=== PATIENT | female | born 1955 | race Caucasian/White ===

== ENCOUNTER 2021-03-05 12:54 | Inpatient (IN) | payer MEDICARE, OTHER, SELFPAY ==
[2021-03-05] VITALS (17 sets, daily range): BP systolic 159–206; BP diastolic 85–104; PULSE 64–88; RESP 15–18; TEMP 36.2–36.6; O2SAT 95–100; BMI 25.2; BMI 24.8
--- NOTE | 2021-03-05 13:20 | EKG12_ITS ---
Test Reason : VISION Blood Pressure : / mmHG Vent. Rate : 079 BPM Atrial Rate : 079 BPM P-R Int : 148 ms QRS Dur : 100 ms QT Int : 382 ms P-R-T Axes : 047 033 050 degrees QTc Int : 438 ms Sinus rhythm with occasional Premature ventricular complexes Otherwise normal ECG Confirmed by JORDAN PEREZ, CECILIA ([id number]), metropolitan editor TARSHA AMIN ([id number]) on 03/11/2021 9:30:59 A M Referred By: JANICE Confirmed By:JD ORTEGA MD
--- NOTE | 2021-03-05 13:20 | CT_ITS ---
STUDY: CT HEAD STROKE PROTOCOL W/O CONTRAST INJECTION REASON FOR EXAM: Female, 66 years old. Neuro deficit, acute, stroke suspected RADIATION DOSAGE (If Supplied By Facility): CTDIvol = ( ) mGy, DLP = ( ) mGycm TECHNIQUE: Transaxial CT imaging of the brain was performed without administration of intravenous contrast material. Individualized dose optimization techniques were used for this CT. COMPARISON: No relevant priors. FINDINGS: Normal soft tissue structures. Normal calvarium. There is mild cerebral atrophy with widening of the extra-axial spaces and ventricular dilatation. There are areas of decreased attenuation within the white matter tracts of the supratentorial brain, consistent with microvascular disease changes. There are small punctate calcifications of the basal ganglia which are seen in the aging brain as a normal variant. Normal brainstem. Normal cerebellum. There is no intracranial hemorrhage. Moderate sized area of diminished density involving the left occipital lobe. Normal visualized paranasal sinuses. CT/STROKE Brain/Head without Cont IMPRESSION: Left SAFE AND VAULT SERVICE MECHANIC territory (occipital lobe) infarction. No acute intracranial hemorrhage. N.B. : The above Results were Read Back by Soham Torres MD (Brooks) to Luis Connolly DO, and understanding confirmed on 03/05/2021 13:56:05 (ET). Electronically Signed: Soham Torres MD (Brooks) at 13:57 EDT , Service support ,
--- NOTE | 2021-03-05 13:26 | NURSING ---
NO OLD EKGS
[2021-03-05 13:37] LABS: Absolute Lymphocyte Count 2.35 X10^3/uL (0.83-4.51); Absolute Neutrophil Count 4.7 X10^3/uL (2.0-7.7); Basophil# 0.07 X10^3/uL; Basophil% 0.9 % (0-1); Eosinophil# 0.04 X10^3/uL; Eosinophils% 0.5 % (0-5); Hemoglobin 13.6 g/dL (12.0-15.0); Lymphocyte # 2.35 X10^3/ul (0.83-4.51); Lymphocyte % 30.8 % (19-41); Mean Corp Hgb Conc 33.2 g/dL (32-36); Mean Corpuscular Hgb 28.2 pg (27.0-32.0); Mean Corpuscular Volume 84.9 fL (81-99); Mean Platelet Vol. 9.6 fl (6.2-12.0); Monocyte# 0.48 X10^3/uL; Monocyte% 6.3 % (0-10); NRBC Flagged by Analyzer 0 % (0-5); Neutrophil # 4.65 X10^3/uL (2.7-7.7); Neutrophil % 60.8 % (47-70); Platelet Count 321 K/mm3 (150-450); RBC Distribution Width CV 12.2 % (11.6-14.6); RBC Distribution Width SD 37.6 fl (35.1-43.9); Red Blood Count 4.83 M/mm3 (4.2-5.4); White Blood Count 7.6 K/mm3 (4.4-11.0)
--- NOTE | 2021-03-05 13:39 | RAD_ITS ---
STUDY: X-RAY CHEST REASON FOR EXAM: Female, 66 years old. Neuro deficit, acute, stroke suspected TECHNIQUE: AP COMPARISON: None. FINDINGS: EKG leads project over the chest. The lungs are clear and expanded. There is no demonstrated pleural abnormality. Normal size heart. Normal mediastinum and guillaume. Normal visualized pulmonary arteries. There is atherosclerotic tortuosity of the aortic arch and descending thoracic aorta. Normal visualized thoracic spine. Normal visualized ribs, clavicles, and shoulders. There is no demonstrated abnormality of the visualized soft tissue structures of the upper abdomen. RAD/Chest 1 View IMPRESSION: Nonacute portable x-ray examination of the chest. Electronically Signed: Soham Torres MD (Brooks) at 13:57 EDT , Service support ,
[2021-03-05 14:00] LABS: Anion Gap 9 (5-15); BUN 10 mg/dL (7-18); BUN/Creat Ratio 13.6 RATIO (10-20); Calcium,Total 9.1 mg/dL (8.5-10.1); Chloride 102 mmol/L (98-107); Creatinine, Serum 0.73 mg/dL (0.55-1.02); EST Glomerular Filtration Rate 85 mL/min (>60); Est Glom Filt Rate - Afr Amer 102 mL/min (>60); Estimated Creatinine Clearance 71.92 ml/min; Free T3 1.4 pg/mL (2.18-3.98); Glucose 243 mg/dL (74-106); Potassium 3.6 mmol/L (3.5-5.1); Sodium Level 137 mmol/L (136-145); T4 Free Direct 0.85 ng/dL (0.76-1.46); Thyroid Stim Hormone (TSH) 6.38 uIU/mL (0.358-3.74); Troponin-I HS 18 pg/mL (3.0-54.0)
[2021-03-05 14:08] LABS: Prothrombin Time (Protime)PT. 12.4 SECONDS (11.7-14.9)
[2021-03-05 14:09] LABS: Partial Thromboplast Time 26.3 Seconds (24.1-36.2)
--- NOTE | 2021-03-05 14:10 | PCM.HP.STD ---
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 Work-up in the ED included T 97.5, heart rate 88, BP initially 196/104 with repeat 182/90, respiratory rate 16, 100% on room air, CBC with WBC 7.6, hemoglobin 13.6, platelet 321 without marked shift, unremarkable coags including PT 12.4, INR 1.0 with pending PTT, BMP with glucose 243, TSH 6.38 with free T4 0.85, high-sensitivity troponin 18, chest x-ray with no acute cardiopulmonary findings, CT head with a left CLEAN ROOM ASSEMBLER territory (occipital lobe) infarction evident with no acute intracranial hemorrhage, EKG sinus rhythm with no acute evidence of ischemia, rapid SARS Covid antigen pending. In the ED patient administered a full dose strength aspirin. [facility] Medical History (Updated 03/05/21 @ 14:[address] Melissa Muhammad MD) Adrenal adenoma Anxiety History of adrenal adenoma History of hyperthyroidism HTN (hypertension) Hypothyroid Home Medications levothyroxine [Synthroid] 125 mcg PO DAILY 03/05/21 [History Last Taken Unknown] Allergy/AdvReac Type Severity Reaction Status Date / Time atenolol AdvReac Other Verified 03/05/21 12:58 erythromycin base AdvReac Other Verified 03/05/21 12:58 Family History (Updated 03/05/21 @ 14:[address] Melissa Muhammad MD) Mother Cancer Hx breast cancer and mesothelioma. Father Heart disease Surgical History (Updated 03/05/21 @ 14:[address] Melissa Muhammad MD) Hx of partial adrenalectomy S/P cholecystectomy S/P thyroidectomy Social History (Updated 03/05/21 @ 14:[address] Melissa Muhammad MD) household members: spouse Smoking Status: Never smoker alcohol intake: never substance use type: does not use ROS ROS Narrative Admission Review of Systems: CONSTITUTIONAL: No weight loss, fever, chills, + weakness or fatigue. HEENT: + Right eye vision changes with difficulty seeing anything towards the right periphery, intermittent. Eyes: No double vision or yellow sclerae. Ears, Nose, Throat: No hearing loss, sneezing, congestion, runny nose or sore throat. SKIN: No rash or itching, lesions, wounds. CARDIOVASCULAR: No chest pain, chest pressure or chest discomfort, palpitations, edema, orthopnea, syncopal events. RESPIRATORY: No shortness of breath, cough or sputum, wheezing, hemoptysis. GASTROINTESTINAL: No anorexia, nausea, vomiting or diarrhea, abdominal pain, melena, BRBPR. GENITOURINARY: No dysuria, frequency, urgency or retention. NEUROLOGICAL: + headache, No dizziness, syncope, paralysis, ataxia, numbness or tingling in the extremities, focal weakness, change in bowel or bladder control, seizure. MUSCULOSKELETAL: No muscle, back pain, joint pain or stiffness. HEMATOLOGIC: No anemia, bleeding or bruising. LYMPHATICS: No enlarged nodes. No history of splenectomy. PSYCHIATRIC: + history of depression or anxiety. ENDOCRINOLOGIC: No reports of sweating, cold or heat intolerance. No polyuria or polydipsia. ALLERGIES: No history of asthma, hives, eczema or rhinitis. Vital Signs Vital Signs Vital Signs: 03/05/21 12:54 03/05/21 13:26 03/05/21 14:00 Temperature 97.5 F L Temperature Source Temporal Pulse Rate 88 67 Respiratory Rate 16 17 Blood Pressure 196/104 H 182/90 H Blood Pressure Mean 134 120 Pulse Ox 100 96 Oxygen Delivery Method Room Air Room Air Room Air Weight Weight: 156 lb Body Mass Index (BMI) 25.2 Physical Exam Narrative Physical Examination: General: Awake, alert, oriented x 3 and cooperative, seated upright in the ED bed in no apparent distress; however, easily becomes anxious with discussions. Skin: Normal color, normal turgor, no icterus, no cyanosis. HEENT: AT/NC, EOMI, PERRLA, peripheral exam with minimal deficit to the right periphery as had been referred to the ED for right hemianopsia, MMM, no carotid bruits or JVD noted. Lungs: CTA bilaterally, moderate effort, mild decrease BL bases, no rales, ronchi or wheezing. Heart: Regular rate and rhythm; no gallop, rub audible. Abdomen: Soft, overweight, NTTP, ND, normal BS, no HSM. Extremities: No cyanosis, clubbing, or edema. Neurological: Patient awake, alert, oriented as noted, cognitive function intact; pupils equally reactive to light and accommodation, cranial nerves grossly normal except noted mild peripheral deficits to the right periphery upper and lower quadrants however this seems to be intermittent as improved upon current evaluation but had been notable upon initial ED evaluation, moving all 4 extremities, no focal deficits, strength preserved, [id number] and [id number] appropriate, sensation intact. Psychiatric: Affect appears anxious, no acute evidence of depressive feelings. Results Lab / Micro Data Result Diagrams: 03/05/21 13:25 03/05/21 13:25 Labs: Laboratory Results - last 24 hr 03/05/21 13:25: WBC 7.6, RBC 4.83, Hgb 13.6, Hct 41.0, MCV 84.9, MCH 28.2, MCHC 33.2, RDW Std Deviation 37.6, RDW Coeff of Monica 12.2, Plt Count 321, MPV 9.6, Immature Gran % (Auto) 0.700, Neut % (Auto) 60.8, Lymph % (Auto) 30.8, [place] % (Auto) 6.3, Eos % (Auto) 0.5, Baso % (Auto) 0.9, Absolute Neuts (auto) 4.7, Absolute Lymphs (auto) 2.35, Nucleated RBC % 0 03/05/21 13:25: PT Cancelled, INR Cancelled, APTT Cancelled 03/05/21 13:25: Sodium 137, Potassium 3.6, Chloride 102, Carbon Dioxide 26.0, Anion Gap 9, BUN 10, Creatinine 0.73, Estim Creat Clear Calc 71.92, Est GFR (MDRD) Af Amer 102, Est GFR (MDRD) Non-Af 85, BUN/Creatinine Ratio 13.6, Glucose 243 H, Calcium 9.1, Troponin I High Sens 18, TSH 6.38 H, Free T4 0.85, Free T3 pg/dL 1.4 L 03/05/21 13:50: PT 12.4, INR 1.[address] 03/05/21 13:20 IMPRESSION: Left CLEAN ROOM ASSEMBLER territory (occipital lobe) infarction. No acute intracranial hemorrhage. N.B. : The above Results were Read Back by Soham Torres MD (Brooks) to Luis Connolly DO, and understanding confirmed on 03/05/2021 13:56:05 (ET). Electronically Signed: Soham Torres MD (Brooks) at 13:57 EDT , Service support , ADDENDUM: 03/05/21 1404 IMPRESSION: Left CLEAN ROOM ASSEMBLER territory (occipital lobe) infarction. No acute intracranial hemorrhage. N.B. : The above Results were Read Back by Soham Torres MD (Brooks) to Luis Connolly DO, and understanding confirmed on 03/05/2021 13:56:05 (ET). Electronically Signed: Soham Torres MD (Brooks) at 13:57 EDT , Service support , Chest X-Ray 03/05/21 13:39 IMPRESSION: Nonacute portable x-ray examination of the chest. 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 1. Intermittent vision changes secondary to acute left CLEAN ROOM ASSEMBLER territory (occipital lobe) infarction: Will admit to PCU, will obtain MRI Brain, MRA Head and Neck, ECHO, PT/OT/Speech/Nutrition evaluation per protocol. Will consult Neurology for evaluation once further imaging and evaluation obtained. Given timeline with symptoms ongoing for several days will initiate hypertensive regimen, specifically Cozaar as patient has had medication reactions prior she notes and adjust as needed to maintain appropriate blood pressure parameters, maintain on aspirin, add high-dose statin, TSH is noted elevated however free T4 normal the subclinical, magnesium pending, hemoglobin A1c pending, FLP pending. Will maintain on fall precautions. 2. Elevated BP without hypertensive diagnosis: Patient has been with significant elevated blood pressures upon presentation, ongoing symptoms for several day therefore treatment will be initiated, will start with moderate dose Cozaar and monitor with additional regimen as needed to obtain appropriate BP parameters, as needed IV hydralazine 3. Hyperglycemia with suspected new onset Diabetes mellitus type II: Admission glucose 243, will obtain hemoglobin A1c, will maintain in interim on ADA diet with accu checks w/ ISS, nutrition consultation for education and teaching. 4. Hypothyroidism: Patient with history of overactive thyroid status post resection, continue home synthroid regimen, TSH 6.38 however free T4 0.85, subclinical. 5. History of adrenal adenoma: Status post resection. 6. Anxiety: Patient with discussions and per review visits with physicians and other type of life stressor issues with apparent anxiety leading to significantly elevated blood pressures. Discussed need for consideration counseling/cognitive behavioral therapy given patient difficulty with medications per her report. 7. DVT prophylaxis: SCDs, Lovenox. Charges/Coding Visit Charges Inpatient E&M: 62786 Init Hosp L3
--- NOTE | 2021-03-05 14:19 | EDS_ITS ---
HPI History of Present Illness Chief Complaint: Vision Prob Narrative Narrative: Patient presenting from her eye doctor for concern for homonymous hemianopsia on the right. He states he was concerned for a left occipital lesion. Apparently the patient symptoms started about 5 days ago. She states she was trying to read the time 1:00 and noticed that at 345 she was having difficulty reading the 5 on the right and then she states she was having difficulty reading the 4 in 345. Patient states that the next morning she was having difficulty reading in the morning. She made an appointment for her eye doctor and subsequently was sent here. She states she has only past medical history of whitecoat syndrome which is why her blood pressure is elevated. She denies diabetes or cardiac history. She does have hypothyroidism and does take Synthroid. She states she cannot remember when she took the last dose but it may have been several days. She has not had any facial droop, slurred speech, loss of function in her arms or legs. She denies paresthesias. [facility] Medical History Adrenal adenoma Hypothyroid Home Medications levothyroxine [Synthroid] 125 mcg PO DAILY 03/05/21 [History Last Taken Unknown] Allergy/AdvReac Type Severity Reaction Status Date / Time atenolol AdvReac Other Verified 03/05/21 12:58 erythromycin base AdvReac Other Verified 03/05/21 12:58 Social History Smoking Status: Never smoker ROS ROS ED Constitutional Constitutional ED: Denies chills or fever(s) Eyes Eyes: Reports blurry vision and change in vision bilateral ENT ENT ED: Denies ear pain or rhinorrhea Cardiovascular Cardiovascular: Denies chest pain or palpitations Respiratory/Chest Respiratory/Chest: Denies cough or dyspnea Gastrointestinal Gastrointestinal: Denies abdominal pain, nausea or vomiting Genitourinary Genitourinary ED: Denies dysuria or hematuria Musculoskeletal Musculoskeletal: Denies arthralgias or myalgias Integumentary Denies abscess or rash Neurologic Neurologic: Denies headache(s) or paresthesias EXAM Physical Exam Const Vital Signs: 03/05/21 12:54 03/05/21 13:20 03/05/21 13:26 Temperature 97.5 F L Temperature Source Temporal Pulse Rate 88 81 Respiratory Rate 16 17 Blood Pressure 196/104 H 206/98 H Blood Pressure Mean 134 134 Pulse Ox 100 99 Oxygen Delivery Method Room Air Room Air Room Air 03/05/21 13:50 03/05/21 14:00 Temperature Temperature Source Pulse Rate 77 67 Respiratory Rate 16 17 Blood Pressure 182/90 H 182/90 H Blood Pressure Mean 120 120 Pulse Ox 99 96 Oxygen Delivery Method Room Air Room Air Positive well nourished General Appearance ED: NAD HEENT Reports moist mucous membranes atraumatic Eyes PERRL and EOMs intact bilaterally Resp normal respiratory effort and clear to auscultation bilaterally Cardio Rate: regular rate Rhythm: regular rhythm Extremity normal to inspection General Extremety ED: Negative for deformity or tenderness General Extremity: Negative for deformity Neuro oriented x3 and no sensory deficits noted Neuro Narrative: Denies stroke scale score of 1 for right homonymous hemianopia Sensorium / Orientation: alert Motor Exam: strength 5/5 throughout Psych mental status grossly normal Skin General Skin Exam: Negative for jaundice STROKE Vital Signs/Narrative: Vital Signs Temp Pulse Resp BP Pulse Ox 03/05/21 14:00 67 17 182/90 H 96 03/05/21 13:50 77 16 182/90 H 99 03/05/21 13:20 81 17 206/98 H 99 03/05/21 12:54 97.5 F L 88 16 196/104 H 100 MDM MDM MDM Narrative Medical decision making narrative: Patient presenting with right-sided homonymous myopia. This is the only finding on examination. NIH stroke scale score of 1. Patient CBC and BMP are significant only for hyperglycemia with a blood glucose of 243. Patient does admit to not eating or drinking anything with sugar today. She is only had water. It is possible she could be diabetic and undiagnosed. I EKG on my interpretation shows a normal sinus rhythm with a ventricular rate of 79 bpm with occasional PVC. Troponin is 18. TSH is elevated at 6.38, free T4 0.85, free T3 1.4. Coagulation studies are normal. The radiologist did read the CT of the brain as Left GENERAL OPHTHALMOLOGIST territory (occipital lobe) infarction. No acute intracranial hemorrhage. This does make sense given the patient's symptoms. Patient was given aspirin 324 mg p.o. She will be discussed with the hospitalist for admission for CVA. Her blood pressure was e levated and she is not treated for hypertension. She states that she has whitecoat syndrome and that when she is at home her blood pressures in the 140 systolic range. In addition to this her blood sugar is elevated and this will need to be evaluated inpatient for possible underlying diabetes. Patient stable on transfer to medical floor. Impression: 1. CVA 2. Right hemianopsia 3. Hypertension 4. Hyperglycemia Lab Data Labs: Laboratory Results - last 24 hr 03/05/21 03/05/21 03/05/21 13:25 13:25 13:25 WBC 7.6 RBC 4.83 Hgb 13.6 Hct 41.0 MCV 84.9 MCH 28.2 MCHC 33.2 RDW Std Deviation 37.6 RDW Coeff of Monica 12.2 Plt Count 321 MPV 9.6 Immature Gran % (Auto) 0.700 Neut % (Auto) 60.8 Lymph % (Auto) 30.8 [place] % (Auto) 6.3 Eos % (Auto) 0.5 Baso % (Auto) 0.9 Absolute Neuts (auto) 4.7 Absolute Lymphs (auto) 2.35 Nucleated RBC % 0 PT Cancelled INR Cancelled APTT Cancelled Sodium 137 Potassium 3.6 Chloride 102 Carbon Dioxide 26.0 Anion Gap 9 BUN 10 Creatinine 0.73 Estim Creat Clear Calc 71.92 Est GFR (MDRD) Af Amer 102 Est GFR (MDRD) Non-Af 85 BUN/Creatinine Ratio 13.6 Glucose 243 H Calcium 9.1 Troponin I High Sens 18 TSH 6.38 H Free T4 0.85 Free T3 pg/dL 1.4 L 03/05/21 13:50 WBC RBC Hgb Hct MCV MCH MCHC RDW Std Deviation RDW Coeff of Monica Plt Count MPV Immature Gran % (Auto) Neut % (Auto) Lymph % (Auto) [place] % (Auto) Eos % (Auto) Baso % (Auto) Absolute Neuts (auto) Absolute Lymphs (auto) Nucleated RBC % PT 12.4 INR 1.0 APTT 26.3 Sodium Potassium Chloride Carbon Dioxide Anion Gap BUN Creatinine Estim Creat Clear Calc Est GFR (MDRD) Af Amer Est GFR (MDRD) Non-Af BUN/Creatinine Ratio Glucose Calcium Troponin I High Sens TSH Free T4 Free T3 pg/dL Radiography Diagnostic Testing: Radiology Impression Brain CT 03/05/21 13:20 IMPRESSION: Left GENERAL OPHTHALMOLOGIST territory (occipital lobe) infarction. No acute intracranial hemorrhage. N.B. : The above Results were Read Back by Soham Torres MD (Brooks) to Luis Connolly DO, and understanding confirmed on 03/05/2021 13:56:05 (ET). Electronically Signed: Soham Torres MD (Brooks) at 13:57 EDT , Service support , ADDENDUM: 03/05/21 1404 IMPRESSION: Left GENERAL OPHTHALMOLOGIST territory (occipital lobe) infarction. No acute intracranial hemorrhage. N.B. : The above Results were Read Back by Soham Torres MD (Brooks) to Luis Connolly DO, and understanding confirmed on 03/05/2021 13:56:05 (ET). Electronically Signed: Soham Torres MD (Brooks) at 13:57 EDT , Service support , Chest X-Ray 03/05/21 13:39 IMPRESSION: Nonacute portable x-ray examination of the chest. Electronically Signed: Soham Torres MD (Brooks) at 13:57 EDT , Service support , Discharge Plan Triage Chief Complaint: Vision Prob ED Provider: Luis Connolly Dx/Rx/DC Orders Primary Care Provider: Gabriela Louie
--- NOTE | 2021-03-05 14:21 | NURSING ---
DR CODY FOR DR FRANCIS
--- NOTE | 2021-03-05 14:24 | ED.RN ---
PT STATES BLOOD PRESSURE ARE ALWAYS ELEVATED DURING ANY KIND OF CONTACT WITH MEDICAL STAFF OR PROCEDURES. INSISTS BLLOD PRESSURES ARE WNL AT HOME.
--- NOTE | 2021-03-05 14:27 | NURSING ---
PCU CVA WHITE
[2021-03-05] MEDS: Aspirin 81 MG TAB.CHEW 324 MG PO (14:42)
--- NOTE | 2021-03-05 15:33 | CHAPLAIN ---
Type of Pastoral Visit _x__ Initial Visit ___ Follow-up Visit ___ On-call Visit ___ General Patient Visit ___ Spiritual Assessment ___ Family Conference ___ Bereavement ___ Rapid Response ___ Code Blue ___ Other (describe below) Pastoral Care Referral From _x__ Patient _x__ Family ___ Nurse ___ Physician ___ Rn Sexual Assault ___ Autocutter ___ Other (describe below) Sacrament/Intervention _x__ Active listening ___ Anointing ___ Yarsani ___ Bereavement ___ Communion ___ Veena exploration ___ _x__ Life review _x__ Prayer ___ Reconciliation ___ Sacrament of Sick _x__ Supportive presence ___ Wedding ___ Other (describe below) Pastoral Comments patient and spouse are known acquaintances of this vp revenue cycle; met them in ED upon arrival and followed through for support until patient was admitted; gave presence, prayer, and ongoing support as needed
--- NOTE | 2021-03-05 15:40 | MRI_ITS ---
We are attempting to reach an attending provider to discuss findings. An addendum with communication details will be sent when the communication is complete. EXAM: MR ANGIOGRAPHY HEAD WITHOUT INTRAVENOUS CONTRAST CLINICAL INDICATION: CVA TECHNIQUE: Routine [place]/brain 3D time of flight MR angiogram protocol was performed without intravenous contrast. This report was created using [employer] report generation technology. COMPARISON: None. FINDINGS: RIGHT INTERNAL CAROTID ARTERY: No acute findings. No significant stenosis at the intracranial/visualized segments. No aneurysm. RIGHT ANTERIOR CEREBRAL ARTERY: Unremarkable. No significant stenosis at the visualized segments. Anterior communicating artery is present. No aneurysm. RIGHT MIDDLE CEREBRAL ARTERY: Unremarkable. No significant stenosis at the visualized segments. No aneurysm. RIGHT POSTERIOR CEREBRAL ARTERY: Unremarkable. No significant stenosis at the visualized segments. No aneurysm. RIGHT VERTEBRAL ARTERY: Unremarkable as visualized. No significant stenosis at the intradural/visualized segments. No aneurysm. LEFT INTERNAL CAROTID ARTERY: No acute findings. No significant stenosis at the intracranial/visualized segments. No aneurysm. LEFT ANTERIOR CEREBRAL ARTERY: Unremarkable. No significant stenosis at the visualized segments. Anterior communicating artery is present. No aneurysm. LEFT MIDDLE CEREBRAL ARTERY: Unremarkable. No significant stenosis at the visualized segments. No aneurysm. LEFT POSTERIOR CEREBRAL ARTERY: Unremarkable. No significant stenosis at the visualized segments. No aneurysm. LEFT VERTEBRAL ARTERY: Unremarkable as visualized. No significant stenosis at the intradural/visualized segments. No aneurysm. BASILAR ARTERY: Unremarkable. No significant stenosis. No aneurysm. OTHER VASCULATURE: No vascular malformation. BRAIN AND EXTRA-AXIAL SPACES: There is occlusion of the left HOUSE WORKER. There is an ischemic infarct in the left occipital lobe. MRI/MRA Head ONLY without Contrast IMPRESSION: There is occlusion of the left HOUSE WORKER. There is an ischemic infarct in the left occipital lobe. cf called. Electronically Signed: Artie Abreu MD at 20:25 EDT , Service support ,
--- NOTE | 2021-03-05 15:40 | MRI_ITS ---
STUDY: MR Brain W/O Contrast 03/05/2021 8:25 PM REASON FOR EXAM: Female, 66 years old. CVA COMPARISON: None TECHNIQUE: Standardized multiplanar fat and water weighted pulse sequences were obtained. MR Brain W/O Contrast FINDINGS: There is mild cerebral atrophy with widening of the extra-axial spaces and ventricular dilatation. There are a limited number of small white matter hyperintensities, distributed throughout the deep white matter tracts of the cerebral hemispheres, consistent with mild chronic white matter ischemic changes. There is mild prominence of the vermian folia, consistent with atrophy of the vermis. The cerebellar hemispheres are normal. There is abnormal diffusion weighted signal in the Left occipital lobe. There is a correlation abnormal area of low ADC signal. This is consistent for an ischemic infarction. Normal bilateral basal ganglia. Normal thalami. There is no extra-axial fluid accumulation. Normal flow voids within the major intracranial circulation suggesting patency by spin echo criteria. Normal sella turcica, pituitary gland, infundibular stalk, optic chiasm and hypothalamus. Normal tectal plate and pineal gland. Normal midbrain, andrea and medulla. Normal basal cisterns. Normal bilateral temporal bones. Normal bilateral internal auditory canals. No demonstrated orbital abnormality, within the constraints of a routine brain study. Normal visualized paranasal sinuses. Normal calvarium and skull base. Normal visualized soft tissue structures. Normal visualized upper cervical spine. Aspect score 10 IMPRESSION: (NOT LISTED IN ORDER OF SIGNIFICANCE) There is an acute ischemic infarction of the Left occipital lobe. Cf called. Electronically Signed: Artie Abreu MD at 20:27 EDT , Service support , MRI/Brain without Contrast
--- NOTE | 2021-03-05 15:40 | MRI_ITS ---
EXAM: MR ANGIOGRAPHY NECK WITHOUT INTRAVENOUS CONTRAST CLINICAL INDICATION: CVA TECHNIQUE: Routine carotid MR angiogram protocol was performed without intravenous contrast. 3D reconstructions were reviewed. Nascet criteria using the distal ICAs for comparison were used for evaluation of stenoses. This report was created using [employer] report [employer] technology. COMPARISON: None. FINDINGS: RIGHT COMMON CAROTID ARTERY: Unremarkable. No occlusion or significant stenosis. No dissection. RIGHT INTERNAL CAROTID ARTERY: Unremarkable. Extracranial segment is patent with no occlusion or significant stenosis. No dissection. RIGHT EXTERNAL CAROTID ARTERY: Unremarkable. No occlusion. RIGHT VERTEBRAL ARTERY: Unremarkable. No occlusion or significant stenosis. No dissection. LEFT COMMON CAROTID ARTERY: Unremarkable. No occlusion or significant stenosis. No dissection. LEFT INTERNAL CAROTID ARTERY: Unremarkable. Extracranial segment is patent with no occlusion or significant stenosis. No dissection. LEFT EXTERNAL CAROTID ARTERY: Unremarkable. No occlusion. LEFT VERTEBRAL ARTERY: Unremarkable. No occlusion or significant stenosis. No dissection. GREAT VESSELS OF AORTIC ARCH: Unremarkable. No significant stenosis. CAROTID STENOSIS REFERENCE USING NASCET CRITERIA: % ICA stenosis = (1 - narrowest ICA diameter/diameter of distal cervical ICA) x 100. Mild - <50% stenosis. Moderate - 50-69% stenosis. Severe - 70-94% stenosis. Near occlusion - 95-99% stenosis. Occluded - 100% stenosis. MRI/MRA Neck without Contrast IMPRESSION: Unremarkable MRA neck.ALL ABOVE CRITERIA BY NASCET. Electronically Signed: Artie Abreu MD at 21:25 EDT , Service support ,
--- NOTE | 2021-03-05 15:40 | ECHOD_ITS ---
Reason For Study: CVA Procedure This was a 2D Doppler, Color Flow transthoracic echocardiogram. Exam performed portable in patient room. Left Ventricle Normal LV size. Left ventricular systolic function is normal. The estimated ejection fraction is 60 %. Stage 1 diastolic dysfunction. No regional wall motion abnormalities noted. Right Ventricle Normal RV size. Normal systolic function. Atria Normal left atrium. Normal right atrium. Bubble contrast study negative for right to left interatrial shunt. Mitral Valve Normal mitral valve. Tricuspid Valve Normal tricuspid valve. Mild (1+) tricuspid valve insufficiency. Aortic Valve Trisinus/trileaflet aortic valve. Pulmonic Valve Normal pulmonic valve. Great Vessels Normal aortic root. The pulmonary artery is normal size. Normal inferior vena cava. Pericardium/Pleural No pericardial effusion. Medication Performed a rapid injection of agitated mix of 9 cc saline and 1cc air to assess for atrial septal defect. MMode/2D Measurements & Calculations LVIDd: 4.3 cm IVSd: 1.0 cm Ao root diam: 3.3 cm LVIDs: 2.4 cm LVPWd: 1.2 cm RVDd: 2.8 cm FS: 44.2 % LAV(MOD-bp): 34.6 ml LVAd ap4: 24.6 cm2 LVAd ap2: 25.7 cm2 LAV(MOD-bp) Indexed: 19.4 ml/m2 LVLd ap4: 7.8 cm LVLd ap2: 8.2 cm LAV(MOD-sp2): 35.1 ml EDV(MOD-sp4): 63.2 ml EDV(MOD-sp2): 67.9 ml LAV(MOD-sp4): 29.2 ml EDV(sp4-el): 65.6 ml EDV(sp2-el): 68.4 ml LVAs ap4: 12.9 cm2 LVAs ap2: 11.7 cm2 LVLs ap4: 6.8 cm LVLs ap2: 6.8 cm ESV(MOD-sp4): 21.1 ml ESV(MOD-sp2): 18.5 ml ESV(sp4-el): 21.0 ml ESV(sp2-el): 17.0 ml EF(MOD-sp4): 66.6 % EF(MOD-sp2): 72.7 % EF(sp4-el): 68.0 % SV(MOD-sp4): 42.1 ml SV(MOD-sp2): 49.4 ml SV(sp4-el): 44.6 ml LA A4 area: 12.3 cm2 LA dimension(2D): 3.3 cm RA A4 area: 9.2 cm2 Doppler Measurements & Calculations MV E max sergo: 69.1 cm/sec Lat Peak E' Sergo: 7.8 cm/sec Med Peak E' Sergo: 5.4 cm/sec MV A max sergo: 65.7 cm/sec E/E' lat: 8.8 E/E' med: 12.7 MV E/A: 1.1 Ao V2 max: 139.6 cm/sec LV V1 max: 106.8 cm/sec PA V2 max: 93.0 cm/sec Ao max P.8 mmHg LV V1 max P.6 mmHg TR max sergo: 217.7 cm/sec TR max P.0 mmHg ECHO/Echo Complete Interpretation Summary Normal LV size. Left ventricular systolic function is normal. The estimated ejection fraction is 60 %. Stage 1 diastolic dysfunction. Bubble contrast study negative for right to left interatrial shunt. Ordering Physician: Melissa Muhammad Referring Physician: Gabriela Louie M.D. Performed By: Sue Munoz RDCS
[2021-03-05] MEDS: 0.9% Normal Saline 1,000 ML 100 ML IV (16:50)
[2021-03-05] MEDS: 0.9% Saline Lock 10 ML Syringe IV ×2 (16:50→18:46)
[2021-03-05] MEDS: Losartan Potassium 50 MG Tablet PO ×2 (16:50→20:58)
[2021-03-05] MEDS: Insulin Lispro 100 UNIT/ML INSULN.PEN SC ×2 (17:09→20:59)
[2021-03-05 17:11] LABS: Bedside Glucose 209 mg/dL (70-110)
[2021-03-05] MEDS: LORazepam 2 MG/ML Syringe 0.5 MG IV (18:46)
--- NOTE | 2021-03-05 20:30 | NURSING ---
Pts primary rn aware of mri critical findings at this time.
--- NOTE | 2021-03-05 20:50 | TELEMED_ITS ---
[facility] Tele[facility] has confirmed receipt of a request for visit. This document confirms receipt of the order initiating the consult. To find the results of the consultation, please view the patient's reports for the scanned Telemed Consult.
[2021-03-05] MEDS: Atorvastatin Calcium 80 MG Tablet PO (20:59)
--- NOTE | 2021-03-05 21:22 | CDU_ITS ---
Reason For Study: CVA Rt. Velocities/BP Lt. Velocities/BP Prox CCA 68/12 cm/sec. Prox CCA 74/17 cm/sec. Mid CCA 76/19 cm/sec. Mid CCA 85/21 cm/sec. Dist CCA 70/19 cm/sec. Dist CCA 71/20 cm/sec. Prox ICA 54/17 cm/sec. Prox ICA 133/45 cm/sec. Mid ICA 63/22 cm/sec. Mid ICA 103/30 cm/sec. Dist ICA 90/30 cm/sec. Dist ICA 80/30 cm/sec. Rt. ICA/CCA = 1.2. Lt. ICA/CCA = 1.6. Prox ECA 64/9 cm/sec. Prox ECA 56/7 cm/sec. Rt. Vert. 44/14 cm/sec. Lt. Vert. 57/20 cm/sec. Right Extracranial There is heterogeneous, irregular atherosclerotic plaque noted in the right common carotid artery. There is heterogeneous, irregular atherosclerotic plaque noted in the right internal carotid artery. There is no significant atherosclerotic plaque noted in the right external carotid artery. Antegrade flow is noted in the right vertebral artery. Left Extracranial There is heterogeneous, irregular atherosclerotic plaque noted in the left common carotid artery. There is heterogeneous, irregular atherosclerotic plaque noted in the left internal carotid artery. There is intimal thickening but no significant atherosclerotic plaque noted in the left external carotid artery. Antegrade flow is noted in the left vertebral artery. Procedure Carotid Duplex 62799. This is a Carotid Duplex examination using B-mode, color flow and specral Doppler. Exam performed portable in patient room. VL/Carotid Duplex Ultrasound Interpretation Summary Irregular calcific plaque with shadowing at the proximal right internal carotid artery with less than 50% stenosis. Less than 50% stenosis right external carotid artery Irregular calcific plaque in the proximal left internal carotid artery with 50 to 69% stenosis. Less than 50% stenosis left external carotid artery Patent and antegrade vertebral arteries bilaterally Ordering Physician: Holley Olsen Referring Physician: Gabriela Louie Performed By: Mckayla Amor, QUINCY, RVT
[2021-03-05 22:50] LABS: Bedside Glucose 222 mg/dL (70-110)
[2021-03-06] VITALS (11 sets, daily range): BP systolic 116–223; BP diastolic 57–96; PULSE 58–84; RESP 18; TEMP 36.2–36.8; O2SAT 98–100; BMI 24.8
[2021-03-06] MEDS: Levothyroxine 125 MCG Tablet PO (06:19)
[2021-03-06] MEDS: Insulin Lispro 100 UNIT/ML INSULN.PEN SC ×3 (06:19→18:01)
[2021-03-06 06:55] LABS: Bedside Glucose 210 mg/dL (70-110)
[2021-03-06 07:13] LABS: Absolute Lymphocyte Count 2.26 X10^3/uL (0.83-4.51); Absolute Neutrophil Count 4.4 X10^3/uL (2.0-7.7); Basophil# 0.05 X10^3/uL; Basophil% 0.7 % (0-1); Eosinophil# 0.11 X10^3/uL; Eosinophils% 1.5 % (0-5); Hematocrit 36.4 % (37-47); Hemoglobin 12.4 g/dL (12.0-15.0); Lymphocyte # 2.26 X10^3/ul (0.83-4.51); Lymphocyte % 30.3 % (19-41); Mean Corp Hgb Conc 34.1 g/dL (32-36); Mean Corpuscular Hgb 28.5 pg (27.0-32.0); Mean Corpuscular Volume 83.7 fL (81-99); Mean Platelet Vol. 9.5 fl (6.2-12.0); Monocyte# 0.59 X10^3/uL; Monocyte% 7.9 % (0-10); NRBC Flagged by Analyzer 0 % (0-5); Neutrophil # 4.37 X10^3/uL (2.7-7.7); Neutrophil % 58.7 % (47-70); Platelet Count 278 K/mm3 (150-450); RBC Distribution Width SD 36.7 fl (35.1-43.9); Red Blood Count 4.35 M/mm3 (4.2-5.4); White Blood Count 7.5 K/mm3 (4.4-11.0)
[2021-03-06 07:38] LABS: Hemoglobin A1c 11.5 % (3.8-5.6)
[2021-03-06 07:46] LABS: ALB/GLOB Ratio 0.9 RATIO (0.9-2.4); AST(SGOT) 25 U/L (15-37); Alanine Aminotransfer ALT/SGPT 38 U/L (13-56); Albumin, Serum 3.1 g/dL (3.2-5.0); Alkaline Phosphatase 58 U/L (45-117); Anion Gap 7 (5-15); BUN 13 mg/dL (7-18); BUN/Creat Ratio 20.4 RATIO (10-20); Calcium,Total 8.5 mg/dL (8.5-10.1); Chloride 105 mmol/L (98-107); Cholesterol 223 mg/dL (200); Creatinine, Serum 0.64 mg/dL (0.55-1.02); EST Glomerular Filtration Rate 100 mL/min (>60); Est Glom Filt Rate - Afr Amer 120 mL/min (>60); Estimated Creatinine Clearance 82.04 ml/min; Globulin 3.5 g/dL (2.2-4.2); Glucose 221 mg/dL (74-106); High Density Lipoprotein 44 mg/dL; Potassium 3.6 mmol/L (3.5-5.1); Protein, Total 6.6 g/dL (6.4-8.2); Sodium Level 138 mmol/L (136-145); Triglycerides 173 mg/dL; Very Low Density Lipoprotein 35 mg/dL (5-40)
--- NOTE | 2021-03-06 09:28 | CASEMGMT ---
SW went to complete a PHQ 9 with patient as she had a Stroke. However, she politely declined. Liza Rothman MSW MARY ANNE
[2021-03-06] MEDS: Aspirin 325 MG Tablet PO (09:48)
[2021-03-06] MEDS: Losartan Potassium 50 MG Tablet PO ×2 (09:51→18:02)
[2021-03-06] MEDS: Enoxaparin 40 MG/0.4 ML Syringe SC (09:53)
--- NOTE | 2021-03-06 11:35 | CASEMGMT ---
Assessment- SW completed assessment with patient. Her was present as well and she was okay proceeding with assessment. SW also verified demographics information. Living situation- The home that patient and her normally live in is 2 stories. However, due to her 's health issues they have been staying at another home (patient's dad's home, he has ). This home is 1 level with a couple entry steps. PCP: Dr Louie Specialists: someone for her Thyroid, but she doesn't remember name [facility]acy: [facility] DME: shower chair, walker, bedside commode, and grab bars ADL's/IADL's: Patient is normally independent with all ADL's and IADL's Past SNF/rehab: None Past HH: None LW: No. POA: No. Plan: Patient does not anticipate she will need anything at discharge. SW let her know KASANDRA CHAPMAN and SW will follow just in case she ends up needing something. Liza [facility] [employer]
[2021-03-06 12:31] LABS: Bedside Glucose 284 mg/dL (70-110)
--- NOTE | 2021-03-06 12:49 | PCM.DC.SUM ---
Providers Date of Admission: 03/05/21 Primary Care Physician: Dr. Gabriela Louie MD Reason For Visit: ACUTE OCCIPTAL LOBE L INFARCT,NEW ONSET DM, HTN Diagnosis Discharge Diagnosis (1) Acute CVA (cerebrovascular accident): Status: Acute Code(s): I63.9 - Cerebral infarction, unspecified Medications at Discharge Home Medications levothyroxine [Synthroid] 125 mcg PO MOTUWETHFRSA 03/05/21 amlodipine 10 mg PO DAILY #30 tab 03/06/21 amoxicillin 500 mg PO Q8H #15 cap 03/06/21 aspirin 325 mg PO DAILY #30 tab 03/06/21 atorvastatin 80 mg PO QHS #30 tab 03/06/21 clopidogrel [Plavix] 75 mg PO DAILY #21 tab 03/06/21 insulin admin supplies #1 ea 03/06/21 insulin glargine [Lantus Solostar U-100 Insulin] 10 unit SUBCUT QPM #15 ml 03/06/21 lancets #100 ea 03/06/21 metformin 500 mg PO BID #60 tab 03/06/21 Hospital Course Operations None Procedures 2-D Echocardiogram Summary of Care Provided Minutes Spent on Discharge: 45 Hospital Course: Patient is a 66 y/o female with an extensive PMH as outlined, including adrenal adenoma s/p resection and hypertension (currently not treated) who was admitted with a complaint of intermittent blurred vision which had been going on for 5 days prior to admission. She had associated sensation of fullness in her head and pressure behind her eyes, so she took several doses of pseudoephedrine. Vision however worsened and so she went to the [facility] and was referred to the ED on account of right sided hemianopsia with concerns for stroke. CT of the brain done in the ED showed a left posterior cerebral artery territory infarction with no acute intracranial hemorrhage. She was admitted and managed for acute CVA. [facility] neurology was consulted. MRI of the brain showed an acute ischemic infarct of the left occipital lobe. MRA of the head and neck showed occlusion of the left CARGO AND CONTAINER INSPECTOR but was otherwise unremarkable. Carotid duplex showed irregular calcific plaque at the proximal right ICA with less than 50% stenosis and less than 50% stenosis of the right external carotid artery and also irregular calcific plaque in the proximal left ICA with 50 to 69% stenosis and less than 50% stenosis of the left external carotid artery and patent and antegrade vertebral arteries bilaterally. A1C checked was markedly elevated at 11.5; she did admit to episodes of markedly elevated blood sugars, but denied being diagnosed with diabetes mellitus. 2D echo done showed EF of 60% with normal LVSF and stage 1 diastolic dysfunction, and negative bubble study. Patient remained stable and was discharged home on 03/06/2021. She is to follow up with vascular surgery o/a of the 50-69% carotid stenosis in the left proximal left ICA. She was started on PO metformin 500mg bid and lantus 10 units daily cd due to her markedly elevated A1C. She is to follow up with her PCP and outpatient neurology, and also to follow up with endocrinology. She was also started on PO amlodipine 10mg daily o/a of elevated BP. She is to keep a BP log and present to her PCP for adjustment of her meds as needed. She was also discharged on plavix 75mg daily x 3 weeks, and is to continue with oral aspirin afterwards. Patient seen and examined prior to discharge. She complained of pain in her tooth which she described to a tooth infection and said she had been due to have a tooth pulled out some weeks ago. She requested for amoxicillin prescription. She said her vision was improving. Review of systems otherwise negative. Physical Exam Const alert, oriented x3 and no apparent distress General Appearance: cooperative, comfortable and well kempt Exam Limitations: no limitations HEENT normocephalic, head/scalp atraumatic, hearing grossly normal bilaterally and moist oral mucous membranes Eyes PERRL, EOMs intact bilaterally and conjunctivae normal Neck no lymphadenopathy Resp normal respiratory effort, no retractions, no use of accessory muscles and clear to auscultation bilaterally Auscultation: crackles Cardio regular rate, regular rhythm, S1 normal heart sound, S2 normal heart sound and no gallops GI normal to inspection, nondistended, normoactive bowel sounds, soft to palpation, non-tender and non-distended Extremity normal to inspection, full ROM and no clubbing, cyanosis or edema Skin no rashes or lesions noted Neuro oriented x3, CN's II-XII intact bilaterally and moves all extremities Sensorium / Orientation: awake and alert Psych affect normal Weight / BMI Weight Weight: 158 lb 1.143 oz Body Mass Index (BMI) 24.8 ABG / Lab / Microbiology Data Result Diagrams: 03/06/21 06:35 03/06/21 06:35 Laboratory: Laboratory Results - last 24 hr 03/05/21 13:25: WBC 7.6, RBC 4.83, Hgb 13.6, Hct 41.0, MCV 84.9, MCH 28.2, MCHC 33.2, RDW Std Deviation 37.6, RDW Coeff of Monica 12.2, Plt Count 321, MPV 9.6, Immature Gran % (Auto) 0.700, Neut % (Auto) 60.8, Lymph % (Auto) 30.8, [place] % (Auto) 6.3, Eos % (Auto) 0.5, Baso % (Auto) 0.9, Absolute Neuts (auto) 4.7, Absolute Lymphs (auto) 2.35, Nucleated RBC % 0 03/05/21 13:25: PT Cancelled, INR Cancelled, APTT Cancelled 03/05/21 13:25: Sodium 137, Potassium 3.6, Chloride 102, Carbon Dioxide 26.0, Anion Gap 9, BUN 10, Creatinine 0.73, Estim Creat Clear Calc 71.92, Est GFR (MDRD) Af Amer 102, Est GFR (MDRD) Non-Af 85, BUN/Creatinine Ratio 13.6, Glucose 243 H, Calcium 9.1, Troponin I High Sens 18, TSH 6.38 H, Free T4 0.85, Free T3 pg/dL 1.4 L 03/05/21 13:25: Magnesium 2.0 03/05/21 13:50: PT 12.4, INR 1.0, APTT 26.3 03/05/21 17:03: POC Glucose 209 H 03/05/21 20:57: POC Glucose 222 H 03/06/21 06:18: POC Glucose 210 H 03/06/21 06:35: WBC 7.5, RBC 4.35, Hgb 12.4, Hct 36.4 L, MCV 83.7, MCH 28.5, MCHC 34.1, RDW Std Deviation 36.7, RDW Coeff of Monica 12.0, Plt Count 278, MPV 9.5, Immature Gran % (Auto) 0.900, Neut % (Auto) 58.7, Lymph % (Auto) 30.3, [place] % (Auto) 7.9, Eos % (Auto) 1.5, Baso % (Auto) 0.7, Absolute Neuts (auto) 4.4, Absolute Lymphs (auto) 2.26, Nucleated RBC % 0 03/06/21 06:35: Sodium 138, Potassium 3.6, Chloride 105, Carbon Dioxide 26.0, Anion Gap 7, BUN 13, Creatinine 0.64, Estim Creat Clear Calc 82.04, Est GFR (MDRD) Af Amer 120, Est GFR (MDRD) Non-Af 100, BUN/Creatinine Ratio 20.4 H, Glucose 221 H, Calcium 8.5, Total Bilirubin 1.30 H, AST 25, ALT 38, Alkaline Phosphatase 58, Total Protein 6.6, Albumin 3.1 L, Globulin 3.5, Albumin/Globulin Ratio 0.9, Triglycerides 173, Cholesterol 223 H, LDL Cholesterol 144 H, VLDL Cholesterol 35, HDL Cholesterol 44 03/06/21 06:35: Hemoglobin A1c 11.5 H 03/06/21 12:13: POC Glucose 284 H Microbiology: Microbiology 03/05/21 14:05 Nasal Secretion SARS-CoV-2 Antigen (Rapid) - Final Radiography Diagnostic Testing: Radiology Impression Brain CT 03/05/21 13:20 IMPRESSION: Left CARGO AND CONTAINER INSPECTOR territory (occipital lobe) infarction. No acute intracranial hemorrhage. N.B. : The above Results were Read Back by Soham Torres MD (Brooks) to Luis Connolly DO, and understanding confirmed on 03/05/2021 13:56:05 (ET). Electronically Signed: Soham Torres MD (Brooks) at 13:57 EDT , Service support , ADDENDUM: 03/05/21 1404 IMPRESSION: Left CARGO AND CONTAINER INSPECTOR territory (occipital lobe) infarction. No acute intracranial hemorrhage. N.B. : The above Results were Read Back by Soham Torres MD (Brooks) to Luis Connolly DO, and understanding confirmed on 03/05/2021 13:56:05 (ET). Electronically Signed: Soham Torres MD (Brooks) at 13:57 EDT , Service support , Chest X-Ray 10/05/21 13:39 IMPRESSION: Nonacute portable x-ray examination of the chest. Electronically Signed: Soham Torres MD (Brooks) at 13:57 EDT , Service support , Brain MRI 03/05/21 15:40 Echocardiogram 03/05/21 15:40 Interpretation Summary Normal LV size. Left ventricular systolic function is normal. The estimated ejection fraction is 60 %. Stage 1 diastolic dysfunction. Bubble contrast study negative for right to left interatrial shunt. Ordering Physician: Melissa Muhammad Referring Physician: Gabriela Louie M.D. Performed By: Sue Munoz RDCS Head MRA 03/05/21 15:40 IMPRESSION: There is occlusion of the left CARGO AND CONTAINER INSPECTOR. There is an ischemic infarct in the left occipital lobe. cf called. Electronically Signed: Artie Abreu MD at 20:25 EDT , Service support , ADDENDUM: 03/05/212035 IMPRESSION: There is occlusion of the left CARGO AND CONTAINER INSPECTOR. There is an ischemic infarct in the left occipital lobe. cf called. N.B. : The above Results were Read Back by Artie Abreu MD to Diana Waite RN, and understanding confirmed on 03/05/2021 20:29:33 (ET). Electronically Signed: Artie Abreu MD at 20:25 EDT , Service support , Neck MRA 03/05/21 15:40 IMPRESSION: Unremarkable MRA neck.ALL ABOVE CRITERIA BY NASCET. Electronically Signed: Artie Abreu MD at 21:25 EDT , Service support , Carotid Duplex 03/05/21 21:22 Interpretation Summary Irregular calcific plaque with shadowing at the proximal right internal carotid artery with less than 50% stenosis. Less than 50% stenosis right external carotid artery Irregular calcific plaque in the proximal left internal carotid artery with 50 to 69% stenosis. Less than 50% stenosis left external carotid artery Patent and antegrade vertebral arteries bilaterally Ordering Physician: Holley Olsen Referring Physician: Gabriela Louie Performed By: Mckayla Amor, QUINCY, RVT D/C Instructions Discharge Diet: Low fat / Low cholesterol and 1800 Calorie Control Diet Discharge Activity: Return to Normal Activity Weight Bearing Status: Weight bearing as tolerated Call your doctor if you observe: Numbness or Tingling, Shortness of breath, Dizziness, Swelling in the ankles and Increased palpitations (irregular heartbeat) Meaningful Use Info Meaningful Use Diagnoses (Choose all that apply): Ischemic CVA CVA Therapy Assessed for PT,OT and/or ST?: Yes Ischemic Stroke Antithrombotic order at d/c?: Yes Dx of Atrial fib/flutter?: No Anticoagulant at discharge?: No Reason anticoagulant not ordered: Procedure not Indicated Statins at discharge?: Yes Primary Dx Acute Ischemic CVA?: Yes IV tPA ordered during stay?: No Reason IV t-PA not ordered: Treatment not Indicated Discharge Plan Admission Admit Date/Time: 03/05/21 14:14 Primary Reason for Your Visit: acute CVA Attending Provider: Amira Mckeon Primary Care Provider: Gabriela Louie Instructions Patient Instructions: Carotid Artery Disease, Booklet - Understanding Stroke Additional Instructions / Restrictions: Patient instructed by neurology she cannot drive until she is cleared by outpatient neurology. Discharge Orders/Prescriptions Prescriptions: New atorvastatin 80 mg tablet 80 mg PO QHS Qty: 30 RF: 2 aspirin 325 mg tablet 325 mg PO DAILY Qty: 30 RF: 1 Lantus Solostar U-100 Insulin 100 unit/mL (3 mL) insulin pen 10 unit subcut QPM Qty: 15 RF: 1 (DME) insulin admin supplies Insulin Pen See Rx Instructions .ROUTE .MEDSUPPLY Qty: 1 RF: 0 (DME) lancets Misc See Rx Instructions .ROUTE .MEDSUPPLY Qty: 100 RF: 0 metformin 500 mg tablet 500 mg PO BID Qty: 60 RF: 1 clopidogrel [Plavix] 75 mg tablet 75 mg PO DAILY Qty: 21 RF: 0 amoxicillin 500 mg capsule 500 mg PO Q8H Qty: 15 RF: 0 amlodipine 10 mg tablet 10 mg PO DAILY Qty: 30 RF: 1 Continued levothyroxine [Synthroid] 125 mcg tablet 125 mcg PO MOTUWETHFRSA RF: 0 Referrals / Follow Up: Blane Mccabe MD [STAFF PHYSICIAN] - In 1 Week (follow up o/a of carotid stenosis of 50-69%) Gabriela Louie MD [Primary Care Provider] - Within 1 Week Fan Peña MD [STAFF PHYSICIAN] - Within 2 Weeks Nicholas Langston MD [STAFF PHYSICIAN] - Within 2 Weeks Disposition Disposition (needs filled in before D/C Order can be placed): Home, Self Care Charges/Coding Visit Charges OBSV E&M: 90988 Observation care discharge
--- NOTE | 2021-03-06 13:20 | CHAPLAIN ---
Type of Pastoral Visit ___ Initial Visit _x__ Follow-up Visit ___ On-call Visit ___ General Patient Visit ___ Spiritual Assessment ___ Family Conference ___ Bereavement ___ Rapid Response ___ Code Blue ___ Other (describe below) Pastoral Care Referral From _x__ Patient _x__ Family ___ Nurse ___ Physician ___ Oxidation Operator ___ Medical Services Assistant ___ Other (describe below) Sacrament/Intervention _x__ Active listening ___ Anointing ___ Taoist ___ Bereavement ___ Communion ___ Veena exploration ___ ___ Life review _x__ Prayer ___ Reconciliation ___ Sacrament of Sick _x__ Supportive presence ___ Wedding ___ Other (describe below) Pastoral Comments
--- NOTE | 2021-03-06 15:32 | NURSING ---
Pt concerned about d/c medications. States she has tried lots of blood pressure meds and they don't agree with me. When questioned about specific symptoms and which specific meds caused them pt was unsure of any specifics. Pt begging to have amlodipine changed to losartan. Dr Mckeon updated.
--- NOTE | 2021-03-06 16:07 | PHA.DC.MC ---
Pharmacy Service has performed discharge medication reconciliation and counseling for this patient. 1. AMLODIPINE 10MG PO DAILY 2. ASPIRIN 325MG PO DAILY 3. ATORVASTATIN 80MG PO QHS 4. AMOXICILLIN 500MG PO Q8H X 5 DAYS 5. CLOPIDOGREL 75MG PO DAILY X 21 DAYS 6. METFORMIN 500MG PO BID 7. INSULIN GLARGINE 10 UNITS SC QPM The patient's discharge medication list was reviewed for discrepancies and discrepancies were resolved. Home Medications levothyroxine [Synthroid] 125 mcg PO MOTUWETHFRSA 03/05/21 amlodipine 10 mg PO DAILY #30 tab 03/06/21 amoxicillin 500 mg PO Q8H #15 cap 03/06/21 aspirin 325 mg PO DAILY #30 tab 03/06/21 atorvastatin 80 mg PO QHS #30 tab 03/06/21 blood-glucose meter #1 ea 03/06/21 clopidogrel [Plavix] 75 mg PO DAILY #21 tab 03/06/21 insulin admin supplies #1 ea 03/06/21 insulin glargine [Lantus Solostar U-100 Insulin] 10 unit SUBCUT QPM #15 ml 03/06/21 lancets #100 ea 03/06/21 metformin 500 mg PO BID #60 tab 03/06/21 The patient was counseled on the following discharge medications and changes in medications for homegoing were reviewed. The Reason for Use, instructions for use, and potential side effects were reviewed for all new medications. The patient's questions regarding all of their medications were answered. The patient was able to verbally demonstrate an understanding of their discharge medications.
--- NOTE | 2021-03-06 16:24 | CASEMGMT ---
No OT recommended post dc, PT recommends outpt PT. Obtained signed script and given to pt.
--- NOTE | 2021-03-06 16:34 | CASEMGMT ---
Social Work Note SW provided pt with script for outpatient therapy. Pt states she needs therapy for her eyes. SW informed pt that script is for PT outpatient therapy, encouraged pt to speak to her ophthalmologists regarding her eyes and therapy for eyes. Pt states understanding. 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
[2021-03-06] MEDS: Clonidine HCl 0.1 MG, Clonidine HCl 0.2 MG 0.3 MG PO (18:02)
[2021-03-06 18:10] LABS: Bedside Glucose 218 mg/dL (70-110)
== END 2021-03-06 19:33 | disposition home or self-care (01) | DRG 66 ==
LOC: ED 14:04 → PCU 14:29
PROVIDERS: Admitting Provider Family Medicine; Emergency Provider Student in an Organized Health Care Education/Training Program; PCP Internal Medicine; Visit Provider Student in an Organized Health Care Education/Training Program
DX: I63.532 Cerebral infarction due to unspecified occlusion or stenosis of left posterior cerebral artery (principal); H53.461 Homonymous bilateral field defects, right side; R29.701 NIHSS score 1; I10 Essential (primary) hypertension; E11.65 Type 2 diabetes mellitus with hyperglycemia; E89.0 Postprocedural hypothyroidism; F41.9 Anxiety disorder, unspecified; K04.7 Periapical abscess without sinus; Z79.899 Other long term (current) drug therapy
CPT/HCPCS: 36415; 70450; 70544; 70547; 70551; 71045; 80048; 80053; 80061; 82962; 83036; 83735; 84439; 84443; 84481; 84484; 85025; 85610; 85730; 87426; 92523; 93005; 93306; 93880; 97161; 97166; 97802; 99251; 99285; J7030; A4216; G0463

== ENCOUNTER → 2021-12-12 | Outpatient (CLI) | payer MEDICARE, OTHER, SELFPAY ==
[2021-12-12 18:39] LABS: AST(SGOT) 13 U/L (15-37); Alanine Aminotransfer ALT/SGPT 31 U/L (13-56); Albumin, Serum 3.6 g/dL (3.2-5.0); Alkaline Phosphatase 77 U/L (45-117); Bilirubin, Direct 0.14 mg/dL (0.00-0.30); Cholesterol 163 mg/dL (200); Globulin 3.4 g/dL (2.2-4.2); High Density Lipoprotein 67 mg/dL; Triglycerides 77 mg/dL; Very Low Density Lipoprotein 15 mg/dL (5-40)
== END | disposition home or self-care (01) ==
PROVIDERS: PCP Internal Medicine; Referring Provider Psychiatry & Neurology Neurology; Visit Provider Psychiatry & Neurology Neurology
DX: I63.9 Cerebral infarction, unspecified (principal); E78.5 Hyperlipidemia, unspecified; I10 Essential (primary) hypertension
CPT/HCPCS: 36415; 80061; 80076